=== PATIENT | female | born 1955 | race Caucasian/White ===

== ENCOUNTER → 2020-11-23 | Outpatient (CLI) | payer BC ==
--- NOTE | 2020-11-23 10:32 | MM ---
Reason for exam: additional evaluation requested from prior study. Last mammogram was performed 1 year ago. History: Patient is postmenopausal and has history of breast cancer at age 63. Family history of breast cancer in 2 maternal aunts and breast cancer in 2 maternal cousins. Took estrogen for 6 years beginning at age 57. Took progesterone for 6 years beginning at age 57. Taking antineoplastic for 2 years beginning at age 63. Physical Findings: Nurse did not find any significant physical abnormalities on exam. MG Diagnostic Mammo w CAD ALBERTO Bilateral CC and MLO view(s) were taken. Prior study comparison: November 22, 2019, mammogram. December 07, 2018, mammogram. December 05, 2017, mammogram. The breast tissue is heterogeneously dense. This may lower the sensitivity of mammography. Previous mammotome biopsy in the left breast. No significant new findings when compared with previous films. These results were verbally communicated with the patient and result sheet given to the patient on 11/23/20. ASSESSMENT: Benign, BI-RAD 2 RECOMMENDATION: Follow-up diagnostic mammogram of both breasts in 1 year.
== END | disposition home or self-care (01) ==
LOC: RADMAMWWP 09:29 → MERGE 09:40
PROVIDERS: ATTEND Surgery
DX: R92.8 Other abnormal and inconclusive findings on diagnostic imaging of breast (principal); Z85.3 Personal history of malignant neoplasm of breast
CPT/HCPCS: 77066

== ENCOUNTER → 2021-11-30 | Outpatient (CLI) | payer BC ==
--- NOTE | 2021-11-30 15:41 | BD ---
EXAMINATION TYPE: Axial Bone Density DATE OF EXAM: 11/30/2021 COMPARISON: NONE CLINICAL HISTORY: Height: 61 IN Weight: 159 LBS RISK FACTORS HISTORY OF: Active: YES Postmenopausal woman: AGE 53 Take estrogen and/or progesterone medications: NOT NOW How long: TOOK FOR 6 YEARS MEDICATIONS: Additional Medications: VIT D, STATIN, BLOOD PRESSURE MEDS Additional History: BREAST CANCER WITH RADIATION EXAM MEASUREMENTS: Bone mineral densitometry was performed using the [employer]. Bone mineral density as measured about the Lumbar spine is: ----- L1-L4(G/cm2): 1.108 T Score Values are as follows: ----- L2: -1.1 ----- L3: 0.1 ----- L4: -0.5 ----- L1-L4: -0.6 Bone mineral density BASELINE Bone mineral density about the R hip (g/cm2): 1.087 Bone mineral density about the L hip (g/cm2): 1.069 T Score values are as follows: -----R Neck: 0.4 -----L Neck: 0.2 -----R Total: 0.2 -----L Total: 0.7 Bone mineral density BASELINE IMPRESSION: Normal (Values between +1 and -1 indicate normal bone mass). Consider repeating this study in 5 year s or sooner if there is some new clinical indication. NOTE: T-SCORE=SD OF THE YOUNG ADULT MEAN.
== END | disposition home or self-care (01) ==
LOC: RADBDWWP 10:00
PROVIDERS: ATTEND Internal Medicine Hematology & Oncology
DX: Z78.0 Asymptomatic menopausal state (principal); Z79.890 Hormone replacement therapy
CPT/HCPCS: 77080

== ENCOUNTER → 2022-11-27 | Outpatient (CLI) | payer BC, MEDICARE ==
--- NOTE | 2022-11-28 19:58 | MM ---
Reason for Exam: Screening (asymptomatic). Last screening mammogram was performed 12 month(s) ago. Patient History: Menarche at age 17. First Full-Term at age 22. Postmenopausal. Breast cancer, age 63. Estrogen for 6 years from age 57 until age 63. Progesterone for 6 years from age 57 until age 63. 12/24/2018, Stereotactic Core Biopsy on the Left side. 01/12/2019, Stereotactic Core Biopsy on the Left side. 03/10/2019, Lumpectomy on the Left side. 03/10/2019, Benign Core Biopsy on the left side. 03/10/2019, Benign Core Biopsy on the left side. 2019, Radiation Therapy on the left side. Maternal cousin had breast cancer, age 35. Maternal cousin had breast cancer, age 45. Maternal aunt had breast cancer, age 39. Maternal aunt had breast cancer. Prior Study Comparison: 11/22/2019 Bilateral Diagnostic Mammogram, [facility]. 11/23/2020 Bilateral Diagnostic Mammogram, [facility]. 11/26/2021 Bilateral Diagnostic Mammogram, [facility]. Tissue Density: The breast tissue is heterogeneously dense. This may lower the sensitivity of mammography. Findings: Analyzed By CAD. Stable postsurgical and posttreatment changes left breast. There is no suspicious group of microcalcifications or new suspicious mass in either breast. Overall Assessment: Benign, BI-RAD 2 Management: Screening Mammogram of both breasts in 1 year. 1. Patient should continue monthly self breast exams. 2. A clinical breast exam by your physician is recommended on an annual basis. 3. This exam should not preclude additional follow-up of suspicious palpable abnormalities. Electronically signed and approved by: Siva Kidd M.D. Radiologist
== END | disposition home or self-care (01) ==
LOC: RADMAMWWP 13:45
PROVIDERS: ATTEND Internal Medicine Hematology & Oncology
DX: Z12.31 Encounter for screening mammogram for malignant neoplasm of breast (principal); Z78.0 Asymptomatic menopausal state; Z80.3 Family history of malignant neoplasm of breast; Z85.3 Personal history of malignant neoplasm of breast; Z98.890 Other specified postprocedural states
CPT/HCPCS: 77063; 77067

== ENCOUNTER → 2022-11-29 | Outpatient (CLI) | payer BC ==
--- NOTE | 2022-11-29 10:59 | US ---
EXAMINATION TYPE: US pelvis complete transvag DATE OF EXAM: 11/29/2022 COMPARISON: NONE CLINICAL HISTORY: R10.2 PELVIC AND PERINEAL PAIN. Right side pain. No prior surgeries. TECHNIQUE: Transvaginal (TV) and Transabdominal (TA) . Transabdominal sonographic images of the pel vis were acquired. Transvaginal sonographic images were medically necessary to better assess the fol lowing anatomy: Ovaries Date of LMP: Unknown, EXAM MEASUREMENTS: Uterus: 6.6 x 4.0 x 2.5 cm Endometrial Stripe: 0.3 cm Right Ovary: 1.9 x 1.1 x 1.4 cm 1. Uterus: Anteverted Heterogenous. No focal lesions identified at time of exam. 2. Endometrium: wnl 3. Right Ovary: wnl, small in size 4. Left Ovary: Obscured by overlying bowel gas 5. Bilateral Adnexa: wnl 6. Posterior cul-de-sac: no free fluid IMPRESSION: 1. No acute pelvic process. 2. Heterogenous uterus which can be seen with small fibroid changes versus adenomyosis. 3. Left ovary is not visualized due to overlying bowel gas.
== END | disposition home or self-care (01) ==
LOC: RADUSWWP 09:23
PROVIDERS: ATTEND Obstetrics & Gynecology
DX: N85.8 Other specified noninflammatory disorders of uterus (principal); R10.2 Pelvic and perineal pain
CPT/HCPCS: 76830; 76856

== ENCOUNTER → 2023-12-17 | Outpatient (CLI) | payer BC ==
--- NOTE | 2023-12-18 08:48 | MM ---
Reason for Exam: Screening (asymptomatic). Last screening mammogram was performed 12 month(s) ago. Patient History: Menarche at age 17. First Full-Term at age 22. Postmenopausal. Breast cancer, left, age 63. Previous chest radiation therapy at age 63. Estrogen for 6 years from age 57 until age 63. Progesterone for 6 years from age 57 until age 63. 12/24/2018, Stereotactic Core Biopsy on the Left side. 01/12/2019, Stereotactic Core Biopsy on the Left side. 03/10/2019, Lumpectomy on the Left side. 03/10/2019, Benign Core Biopsy on the left side. 03/10/2019, Benign Core Biopsy on the left side. 2018, Radiation Therapy on the left side. Maternal cousin had breast cancer, age 35. Maternal cousin had breast cancer, age 45. Maternal aunt had breast cancer, age 39. Maternal aunt had breast cancer. Prior Study Comparison: 11/23/2020 Bilateral Diagnostic Mammogram, [facility]. 11/26/2021 Bilateral Diagnostic Mammogram, [facility]. 11/27/2022 Bilateral MG 3D screening mammo w/cad, [facility]. Tissue Density: The breast tissue is heterogeneously dense. This may lower the sensitivity of mammography. Findings: Analyzed By CAD. Left breast surgical clips. There is no suspicious group of microcalcifications or new suspicious mass. Overall Assessment: Benign, BI-RAD 2 Management: Screening Mammogram of both breasts in [address] [facility] will attempt to contact patient to return for supplemental views and ultrasound if indicated. Patient should continue monthly self-breast exams. A clinical breast exam by your physician is recommended on an annual basis. This exam should not preclude additional follow-up of suspicious palpable abnormalities. Note on Luna scores and lifetime risk: 1. A Luna score greater than 3% is considered moderate risk. If this is the case, consider specialist referral to assess eligibility for a risk reducing agent. 2. If overall lifetime risk for the development of breast cancer is 20% or higher, the patient may qualify for future screening with alternating mammogram and breast MRI. Electronically signed and approved by: Rod Anderson DO
== END | disposition home or self-care (01) ==
LOC: RADMAMWWP 10:48
PROVIDERS: ATTEND Obstetrics & Gynecology
DX: Z12.31 Encounter for screening mammogram for malignant neoplasm of breast (principal); Z80.3 Family history of malignant neoplasm of breast; Z85.3 Personal history of malignant neoplasm of breast; Z78.0 Asymptomatic menopausal state
CPT/HCPCS: 77063; 77067

== ENCOUNTER → 2024-12-20 | Outpatient (CLI) | payer MEDICARE ==
--- NOTE | 2024-12-20 10:29 | MM ---
Reason for Exam: Screening (asymptomatic). Last mammogram was performed 1 year(s) and 1 month(s) ago. Patient History: Menarche at age 17. First Full-Term at age 22. Postmenopausal. Breast cancer, left, age 63. Previous chest radiation therapy at age 63. Estrogen for 6 years from age 57 until age 63. Progesterone for 6 years from age 57 until age 63. 12/24/2018, Stereotactic Core Biopsy on the Left side. 01/12/2019, Stereotactic Core Biopsy on the Left side. 03/10/2019, Lumpectomy on the Left side. 03/10/2019, Benign Core Biopsy on the left side. 03/10/2019, Benign Core Biopsy on the left side. 2019, Radiation Therapy on the left side. Maternal cousin had breast cancer, age 35. Maternal cousin had breast cancer, age 45. Maternal aunt had breast cancer, age 39. Maternal aunt had breast cancer. Prior Study Comparison: 11/26/2021 Bilateral Diagnostic Mammogram, [facility]. 11/27/2022 Bilateral MG 3D screening mammo w/cad, [facility]. 12/17/2023 Bilateral MG 3D screening mammo w/cad, [facility]. Tissue Density: The breasts are heterogeneously dense, which may obscure small masses. Findings: Analyzed By CAD. Posttreatment change to left breast and axilla are redemonstrated. Benign-appearing right axillary lymph nodes are again seen. There is no suspicious new group of microcalcifications or new suspicious mass in either breast. Overall Assessment: Benign, BI-RAD 2 Management: Screening Mammogram of both breasts in 1 year. . Patient should continue monthly self-breast exams. A clinical breast exam by your physician is recommended on an annual basis. This exam should not preclude additional follow-up of suspicious palpable abnormalities. Note on Luna scores and lifetime risk: 1. A Luna score greater than 3% is considered moderate risk. If this is the case, consider specialist referral to assess eligibility for a risk reducing agent. 2. If overall lifetime risk for the development of breast cancer is 20% or higher, the patient may qualify for future screening with alternating mammogram and breast MRI. [facility], Workstation: 3, 12/20/2024 10:26 AM. Electronically signed and approved by: Marcelino Reed M.D.
== END | disposition home or self-care (01) ==
LOC: RADMAMWWP 09:59
PROVIDERS: ATTEND Internal Medicine Hematology & Oncology
DX: Z12.31 Encounter for screening mammogram for malignant neoplasm of breast (principal); R92.333 Mammographic heterogeneous density, bilateral breasts; Z85.3 Personal history of malignant neoplasm of breast; Z78.0 Asymptomatic menopausal state; Z80.3 Family history of malignant neoplasm of breast
CPT/HCPCS: 77063; 77067

== ENCOUNTER 2025-03-22 09:37 | Day surgery (SDC) | payer MEDICARE ==
[2025-03-18 15:29] VITALS: BMI 30.9
[~2025-03-22 09:37] MED LIST: LIDOCAINE 1% (10MG/ML) FOR IV START INTRADERMA PRN
[2025-03-22] MEDS: IV FLUID CONTINUATION 1,000 ML IV ONE (10:26)
[2025-03-22] MEDS: LACTATED RINGERS 1,000 ML IV SCH (10:26)
[2025-03-22 10:29] VITALS: TEMP 98.6
[2025-03-22] MEDS ORDERED: LIDOCAINE 1% INJ 10MG/ML (20 ML MDV) ONE (10:38)
[2025-03-22] MEDS ORDERED: PROPOFOL 10 MG/ML 20 ML VIAL IV ONE (10:38)
--- NOTE | 2025-03-22 10:43 | P.GSHP ---
History of Present Illness H&P Date: 03/22/25 Chief Complaint: Colon cancer screening 69-year-old female here for colonoscopy. Last colonoscopy 10 years ago. No bowel complaints. No family history of colon cancer. Patient with personal history of breast cancer. Past Medical History Past Medical History: Cancer, Hyperlipidemia, Hypertension Additional Past Medical History / Comment(s): left breast History of Any Multi-Drug Resistant Organisms: None Reported Past Surgical History: Breast Surgery Additional Past Surgical History / Comment(s): left breast bx and lumpectomy, oral sx for peridontal dx, soft tissue graft oral sx, laser sx for glaucoma Past Anesthesia/Blood Transfusion Reactions: No Reported Reaction Past Psychological History: No Psychological Hx Reported Smoking Status: Never smoker Past Alcohol Use History: Heavy Additional Past Alcohol Use History / Comment(s): started smoking approx 1987, quit 2003, smoked less than 1ppd. drinks daily most of the time some times heavy and sometimes light it just depends on the week Past Drug Use History: None Reported - Past Family History Father Family Medical History: Cancer Medications and Allergies Home Medications Medication Instructions Recorded Confirmed Type Atorvastatin [Lipitor] 40 mg PO HS 03/18/25 03/22/25 History Losartan Potassium 50 mg PO HS 03/18/25 03/22/25 History Allergies Allergy/AdvReac Type Severity Reaction Status Date / Time No Known Allergies Allergy Verified 03/22/25 10:07 Surgical - Exam Vital Signs Temp Pulse Resp BP Pulse Ox 98.6 F 97 18 152/91 96 03/22/25 10:26 03/22/25 10:26 03/22/25 10:26 03/22/25 10:26 03/22/25 10:26 Physical exam: General: Well-developed, well-nourished HEENT: Normocephalic, sclerae nonicteric Abdomen: Nontender, nondistended Extremities: No edema Neuro: Alert and oriented Assessment and Plan (1) Colon cancer screening Narrative/Plan: Will proceed with colonoscopy at this time Current Visit: Yes Status: Acute Code(s): Z12.11 - ENCOUNTER FOR SCREENING FOR MALIGNANT NEOPLASM OF COLON SNOMED Code(s): 811939986
--- NOTE | 2025-03-22 10:58 | P.PCN ---
Date of Procedure: 03/22/25 Procedure(s) Performed: PREOPERATIVE DIAGNOSIS: Colon cancer screening POSTOPERATIVE DIAGNOSIS: Normal exam PROCEDURE: Colonoscopy ANESTHESIA: MAC SURGEON: Kenny Isaacs M.D. SPECIMENS: None ENDOSCOPIC PROCEDURE: The patient was placed on the endoscopy table in the left decubitus position. The Olympus colonoscope was inserted into the anus and passed under direct visualization to the base of the cecum. The appendiceal orifice was visualized. From that point the scope was slowly withdrawn inspecti ng all surfaces carefully. There were no neoplastic inflammatory or polypoid lesions throughout the cecum, ascending, transverse, descending, sigmoid and rectum. There was no visible diverticulosis noted. Digital rectal examination was normal. The patient was taken to the recovery room in stable condition per anesthesia guidelines. RECOMMENDATIONS: Resume diet. Repeat colonoscopy 10 years.
[2025-03-22 11:32] VITALS: BP 130/70; PULSE 74; RESP 16
== END 2025-03-22 11:46 | disposition home or self-care (01) ==
LOC: ORWHC2ENDO 09:37
PROVIDERS: ATTEND Surgery
DX: Z12.11 Encounter for screening for malignant neoplasm of colon (principal); I10 Essential (primary) hypertension; E78.5 Hyperlipidemia, unspecified; Z79.899 Other long term (current) drug therapy; Z87.891 Personal history of nicotine dependence; Z85.3 Personal history of malignant neoplasm of breast
CPT/HCPCS: J2003; J2704; G0121